=== PATIENT | female | born 1960 | race Caucasian/White ===

== ENCOUNTER → 2019-01-09 | Outpatient (CLI) | payer BC ==
--- NOTE | 2019-01-09 11:27 | RAD ---
EXAM DESCRIPTION: Knee,Right Complete CLINICAL HISTORY: 58 years, Female, PAIN IN RIGHT LEG COMPARISON: None TECHNIQUE: Three views of the right knee FINDINGS: Lucency at the lateral patella seen on frontal view and sunrise view consistent with a nondisplaced fracture. No sclerosis along the line to suggest that this is an anomaly of ossification (multi partite patella). Bones appear normally mineralized with normal trabecular pattern. Normal appearance of medial and lateral compartments on frontal view. Lateral view shows normal position of the patella. No patellar spurring or enthesopathy. No suprapatellar knee joint effusion. Normal contour of quadriceps and patellar tendons. No abnormal patellar tilt or subluxation on patellar sunrise view. Lateral lucency may be nondisplaced fracture. Age of the fracture is indeterminate without significant overlying soft tissue swelling or evidence of knee joint effusion. IMPRESSION: Findings consistent with nondisplaced fracture of the lateral patella. See above. Electronically signed by: Troy Holt MD 01/09/2019 11:25 AM CDT
== END ==
LOC: RAD 08:07
PROVIDERS: ATTEND Orthopaedic Surgery
DX: M25.561 Pain in right knee (principal)

== ENCOUNTER → 2019-01-23 | Outpatient (CLI) | payer BC ==
--- NOTE | 2019-01-23 11:02 | RAD ---
PROVIDED CLINICAL HISTORY/REASON FOR EXAM: S82.001D Findings: Number of images: 4 Location: Right knee No acute fracture or dislocation. Joint spaces are maintained. No significant joint effusion. Increased sclerosis associated with a nondisplaced lateral patellar fracture. IMPRESSION: Healing nondisplaced lateral patellar fracture. Electronically signed by: Yonny Velazquez MD 01/23/2019 11:00 AM CDT
== END ==
LOC: RAD 09:22
PROVIDERS: ATTEND Orthopaedic Surgery
DX: S82.001D Unspecified fracture of right patella, subsequent encounter for closed fracture with routine healing (principal)

== ENCOUNTER → 2019-03-11 | Outpatient (CLI) | payer BC ==
--- NOTE | 2019-03-11 17:36 | RAD ---
EXAM DESCRIPTION: Knee,Right 1 or 2 Views CLINICAL HISTORY: 58 years, Female, CLOSED FRACTURE OF PATELLA COMPARISON: None TECHNIQUE: Two views of the right knee FINDINGS: No fracture or dislocation. Bones appear normally mineralized with normal trabecular pattern. Mildly narrowed appearance of medial compartment on frontal view. Lateral view shows normal position of the patella. Patellar fracture is not evident on the present study. This would suggest interval healing. No patellar spurring or enthesopathy. No suprapatellar knee joint effusion. Normal contour of quadriceps and patellar tendons. IMPRESSION: Patellar fracture is not visualized suggesting interval healing. Electronically signed by: Troy Holt MD 03/11/2019 5:35 PM CDT
== END ==
LOC: RAD 16:40
PROVIDERS: ATTEND Orthopaedic Surgery
DX: S82.001D Unspecified fracture of right patella, subsequent encounter for closed fracture with routine healing (principal)